=== PATIENT | female | born 2000 | race African-American/Black ===

== ENCOUNTER 2019-03-02 06:29 | Emergency (ER) | payer OTHER ==
[~2019-03-02] VITALS: Ht 162.6 cm; Wt 77.1 kg
[~2019-03-02 06:29] MED LIST: APAP/CODEINE ELI5 M1 OR; NOHOMEMEDICATIONS; TYLENOL W/CODEI1 TA2 PO
[2019-03-02 07:00] LABS: ABSOLUTE NEUTROPHILS 2.8 thou/uL (1.4-8.2); BASOPHILS 0.6 % (0.0-2.0); EOSINOPHILS 1.6 % (0.0-3.0); HEMATOCRIT 35.6 % (37.0-47.0); HEMOGLOBIN 11.4 gm/dL (12.0-15.0); LYMPHOCYTES 55.2 % (24.0-44.0); MONOCYTES 9.2 % (1.0-8.0); PLATELET COUNT 288 thou/uL (150-400); POLYS 33.4 % (36.0-66.0); RDW 15.6 % (10.5-14.5); WBC 8.4 thou/uL (4.0-11.0)
[2019-03-02 07:18] LABS: ANION GAP 10 mmol/L (7-16); BUN 12 mg/dL (7-18); CALCIUM 9.6 mg/dL (8.5-10.1); CHLORIDE 103 mmol/L (98-107); CO2 28 mmol/L (21-32); CREATININE 0.9 mg/dL (0.6-1.0); GLUCOSE 135 mg/dL (74-106); POTASSIUM 3.1 mmol/L (3.5-5.1); SODIUM 141 mmol/L (136-145)
[2019-03-02 07:27] LABS: TROPONIN-I <0.06 ng/mL (<0.06)
[2019-03-02] MEDS ORDERED: METFORMIN HCL500 MG PO (07:29)
[2019-03-02] MEDS ORDERED: NOVOLOG100 UNIT/1 SUBQ (07:29)
[2019-03-02] MEDS ORDERED: LANTUS100 UNIT/M SUBQ (07:29)
[2019-03-02] MEDS ORDERED: PROTONIX40 MG PO (08:04)
[2019-03-02 08:06] VITALS: BP 122/61
--- NOTE | 2019-03-02 08:52 | EKG ---
[place] [address] [facility] [place] [address] ELECTROCARDIOGRAM REPORT Name: CYNTHIA RASCON [facility]US[facility]bara#: [id number] ������������������ Admission: 03/02/19 ������������������ Attend Phys: Discharge: 03/02/19 ������������������ Date of : 89 Report #: [id number] ����������������������������������������������������������������� [id number] THIS REPORT FOR: //name// [facility] ED Test Date: 2019-03-02 Test Time: 06:39:51 Pat Name: CYNTHIA RASCON Department: Room: Gender: F [employer]: [facility] : 2000 Requested By: Oscar Rainey Order Number: [id number] MD: Vinnie Wang Measurements Intervals [place] Rate: 97 P: 17 [place]: 128 QRS: 30 QRSD: 83 T: -5 QT: 358 QTc: 455 Interpretive Statements Sinus rhythm Nonspecific T wave abnormality No previous ECG available for comparison Electronically Signed On 03-02-2019 8:52:13 CDT by Vinnie Wang [email or web address] ��������������������������������������������� <ELECTRONICALLY SIGNED> ���������������������������������������� By: Vinnie Wang MD, [facility] ��������������������������������������������� 03/02/19 0852 0639 0639 Vinnie Wang MD, FACC /EPI
== END 2019-03-02 08:13 | disposition home or self-care (01) ==
LOC: ER 06:29
PROVIDERS: Emergency Medicine
DX: K21.9 Gastro-esophageal reflux disease without esophagitis (principal); E87.6 Hypokalemia; E11.9 Type 2 diabetes mellitus without complications; Z79.4 Long term (current) use of insulin

== ENCOUNTER 2019-04-19 01:24 | Emergency (ER) | payer OTHER ==
[~2019-04-19] VITALS: Ht 165.1 cm; Wt 81.7 kg
[~2019-04-19 01:24] MED LIST changes: +LANTUS100 UNIT/M SUBQ; +METFORMIN HCL500 MG PO; +NOVOLOG100 UNIT/1 SUBQ; +PROTONIX40 MG PO
[2019-04-19] MEDS ORDERED: TESSALON PERLE100 MG PO (02:45)
[2019-04-19 03:07] VITALS: BP 132/82
--- NOTE | 2019-04-19 08:02 | EKG ---
[address] [place] [address] ELECTROCARDIOGRAM REPORT Name: CYNTHIA RASCON Room #: [facility]#: [id number] ������������������ Admission: 04/19/19 ������������������ Attend Phys: Discharge: 04/19/19 ������������������ Date of : [birth year] Report #: [id number] ����������������������������������������������������������������� [id number] THIS REPORT FOR: //name// [facility] ED Test Date: 2019-04-19 Test Time: 01:47:57 Pat Name: CYNTHIA RASCON Department: Room: Gender: F [employer]: : 2000 Requested By: Sammy Granados Order Number: [id number] MD: Lencho Mckeon Measurements Intervals [place] Rate: 65 P: -21 [place]: 121 QRS: 17 QRSD: 84 T: -9 QT: 415 QTc: 432 Interpretive Statements Sinus rhythm Borderline T abnormalities, inferior leads Compared to ECG 03/02/2019 06:39:51 No significant changes Electronically Signed On 04-19-2019 8:02:07 CDT by Lencho Mckeon [email or web address] ��������������������������������������������� <ELECTRONICALLY SIGNED> ���������������������������������������� By: Lencho Mckeon MD ��������������������������������������������� 04/19/19 08 0147 0147 Lencho Mckeon MD /JUAN
== END 2019-04-19 03:04 | disposition home or self-care (01) ==
LOC: ER 01:24
DX: R05 Cough (principal); E11.9 Type 2 diabetes mellitus without complications; Z86.2 Personal history of diseases of the blood and blood-forming organs and certain disorders involving the immune mechanism; Z79.4 Long term (current) use of insulin

== ENCOUNTER 2019-04-25 21:54 | Emergency (ER) | payer OTHER ==
[~2019-04-25] VITALS: Ht 165.1 cm; Wt 83.9 kg
[~2019-04-25 21:54] MED LIST changes: +TESSALON PERLE100 MG PO
[2019-04-25 22:27] LABS: ABSOLUTE NEUTROPHILS 4.1 thou/uL (1.4-8.2); BASOPHILS 0.4 % (0.0-2.0); EOSINOPHILS 0.7 % (0.0-3.0); HEMATOCRIT 34.6 % (37.0-47.0); LYMPHOCYTES 49.1 % (24.0-44.0); MCH 25.6 pg (26.0-34.0); MCHC 31.9 g/dL (28.0-37.0); MCV 80.2 fL (80.0-100.0); MONOCYTES 5.7 % (1.0-8.0); PLATELET COUNT 284 thou/uL (150-400); POLYS 44.1 % (36.0-66.0); RBC 4.31 mil/uL (4.20-5.00); RDW 14.8 % (10.5-14.5); WBC 9.4 thou/uL (4.0-11.0)
[2019-04-25 22:34] LABS: CALCIUM 8.8 mg/dL (8.5-10.1); CREATININE 0.7 mg/dL (0.6-1.0); POTASSIUM 3.2 mmol/L (3.5-5.1)
[2019-04-25 22:40] LABS: ALBUMIN 3.9 g/dL (3.4-5.0); TOTAL BILIRUBIN 0.3 mg/dL (<0.1-1.0)
[2019-04-25 22:41] LABS: URINE BILIRUBIN NEGATIVE (Negative); URINE BLOOD NEGATIVE (Negative); URINE CLARITY CLEAR; URINE COLOR YELLOW; URINE GLUCOSE-RANDOM* NEGATIVE (Negative); URINE KETONES NEGATIVE (Negative); URINE LEUKOCYTES-REFLEX NEGATIVE (Negative); URINE NITRITE-REFLEX NEGATIVE (Negative); URINE PROTEIN (DIPSTICK) NEGATIVE (Negative); URINE SPECIFIC GRAVITY 1.025 (1.005-1.035); URINE UROBILINOGEN 0.2 E.U./dl (0.2-1.0)
[2019-04-25 22:48] LABS: AMP/METHAMP Negative (Negative); BARBITURATES Negative (Negative); BENZODIAZEPINES Negative (Negative); COCAINE Negative (Negative); METHADONE Negative (Negative); OPIATES Negative (Negative); PCP Negative (Negative)
[2019-04-25] MEDS ORDERED: TRAMADOL 50 MG50 MG PO (23:09)
[2019-04-25] MEDS ORDERED: PRILOSEC OTC20 MG PO (23:09)
[2019-04-25] MEDS ORDERED: ONDANSETRON ODT8 MG PO (23:09)
[2019-04-25 23:10] VITALS: BP 147/95
== END 2019-04-25 23:41 | disposition home or self-care (01) ==
LOC: ER 21:54
PROVIDERS: Emergency Medicine
DX: E87.6 Hypokalemia (principal); R11.2 Nausea with vomiting, unspecified; R10.84 Generalized abdominal pain; E11.9 Type 2 diabetes mellitus without complications; Z86.2 Personal history of diseases of the blood and blood-forming organs and certain disorders involving the immune mechanism; Z79.4 Long term (current) use of insulin

== ENCOUNTER 2019-12-03 19:30 | Emergency (ER) | payer OTHER ==
[~2019-12-03] VITALS: Ht 160 cm; Wt 79.4 kg
[~2019-12-03 19:30] MED LIST changes: +ONDANSETRON ODT8 MG PO; +PRILOSEC OTC20 MG PO; +TRAMADOL 50 MG50 MG PO
[2019-12-03] MEDS ORDERED: ENBRACE HR SOF1 EACH PO (20:17)
[2019-12-03] MEDS ORDERED: IRON325 M1 PO (20:17)
[2019-12-03 20:26] LABS: HEMATOCRIT 31.7 % (37.0-47.0); HEMOGLOBIN 10.6 gm/dL (12.0-15.0); MCH 27.6 pg (26.0-34.0); MCHC 33.6 g/dL (28.0-37.0); MCV 82.1 fL (80.0-100.0); RBC 3.86 mil/uL (4.20-5.00); RDW 16.7 % (10.5-14.5); WBC 6.8 thou/uL (4.0-11.0)
[2019-12-03 20:37] LABS: CALCIUM 9.2 mg/dL (8.5-10.1); CREATININE 0.7 mg/dL (0.6-1.0); POTASSIUM 3.2 mmol/L (3.5-5.1)
[2019-12-03 20:50] LABS: URINE BILIRUBIN NEGATIVE (Negative); URINE BLOOD NEGATIVE (Negative); URINE CLARITY SL CLOUDY; URINE COLOR YELLOW; URINE GLUCOSE-RANDOM* NEGATIVE (Negative); URINE KETONES NEGATIVE (Negative); URINE LEUKOCYTES-REFLEX NEGATIVE (Negative); URINE NITRITE-REFLEX NEGATIVE (Negative); URINE PROTEIN (DIPSTICK) NEGATIVE (Negative); URINE UROBILINOGEN 0.2 E.U./dl (0.2-1.0)
[2019-12-03 21:33] VITALS: BP 116/66
== END 2019-12-03 21:33 | disposition home or self-care (01) ==
LOC: ER 19:30
PROVIDERS: Emergency Medicine
DX: O46.92 Antepartum hemorrhage, unspecified, second trimester (principal); O24.912 Unspecified diabetes mellitus in pregnancy, second trimester; E11.9 Type 2 diabetes mellitus without complications; Z3A.14 14 weeks gestation of pregnancy; Z79.899 Other long term (current) drug therapy

== ENCOUNTER 2020-02-13 00:22 | Emergency (ER) | payer OTHER ==
[~2020-02-13] VITALS: Ht 149.9 cm; Wt 93.0 kg
[~2020-02-13 00:22] MED LIST changes: +ENBRACE HR SOF1 EACH PO; +IRON325 M1 PO
[2020-02-13 02:09] VITALS: BP 129/69
== END 2020-02-13 02:11 | disposition home or self-care (01) ==
LOC: ER 00:22
DX: O36.8120 Decreased fetal movements, second trimester, not applicable or unspecified (principal); E11.9 Type 2 diabetes mellitus without complications; Z79.4 Long term (current) use of insulin; Z79.899 Other long term (current) drug therapy; Z3A.20 20 weeks gestation of pregnancy

== ENCOUNTER 2021-03-05 13:55 | Emergency (ER) | payer OTHER ==
[~2021-03-05] VITALS: Ht 160 cm; Wt 81.7 kg
[2021-03-05] MEDS ORDERED: LEVEMIR100 UNIT/1 SUBQ (14:55)
[2021-03-05 15:02] LABS: ABSOLUTE NEUTROPHILS 3.5 thou/uL (1.4-8.2); EOSINOPHILS 0.7 % (0.0-3.0); HEMATOCRIT 36.2 % (37.0-47.0); HEMOGLOBIN 11.7 gm/dL (12.0-15.0); LYMPHOCYTES 34.9 % (24.0-44.0); MCH 25.1 pg (26.0-34.0); MCHC 32.3 g/dL (28.0-37.0); MCV 77.5 fL (80.0-100.0); MONOCYTES 4.6 % (1.0-8.0); PLATELET COUNT 271 thou/uL (150-400); POLYS 58.8 % (36.0-66.0); RBC 4.68 mil/uL (4.20-5.00); RDW 15.4 % (10.5-14.5)
[2021-03-05 15:06] LABS: ANION GAP 8 mmol/L (7-16); BUN 14 mg/dL (7-18); CALCIUM 8.6 mg/dL (8.5-10.1); CHLORIDE 94 mmol/L (98-107); CO2 27 mmol/L (21-32); CREATININE 0.9 mg/dL (0.6-1.0); GLUCOSE 369 mg/dL (74-106); SODIUM 129 mmol/L (136-145)
[2021-03-05 15:12] LABS: ALBUMIN 4.3 g/dL (3.4-5.0); DIRECT BILIRUBIN < 0.1 mg/dL (<0.1-0.2); LIPASE 73 U/L (73-393); SGOT 14 U/L (15-37); SGPT 25 U/L (14-59); TOTAL BILIRUBIN 0.3 mg/dL (0.2-1.0); TOTAL PROTEIN 8.1 g/dL (6.4-8.2)
[2021-03-05 15:47] LABS: URINE BILIRUBIN NEGATIVE (Negative); URINE BLOOD NEGATIVE (Negative); URINE CLARITY CLEAR; URINE COLOR YELLOW; URINE GLUCOSE-RANDOM* 3+ (Negative); URINE KETONES TRACE (Negative); URINE LEUKOCYTES-REFLEX NEGATIVE (Negative); URINE NITRITE-REFLEX NEGATIVE (Negative); URINE PROTEIN (DIPSTICK) NEGATIVE (Negative); URINE SPECIFIC GRAVITY 1.025 (1.005-1.035); URINE UROBILINOGEN 0.2 E.U./dl (0.2-1.0)
[2021-03-05 15:59] VITALS: BP 130/87
== END 2021-03-05 16:00 | disposition home or self-care (01) ==
LOC: ER 13:55
PROVIDERS: Nurse Practitioner
DX: E11.65 Type 2 diabetes mellitus with hyperglycemia (principal); Z79.4 Long term (current) use of insulin